=== PATIENT | female | born 1950 | race Caucasian/White ===

== ENCOUNTER 2016-08-13 14:19 | Outpatient (CLI) | payer MEDICARE, OTHER | END 2016-08-13 14:20 | disposition home or self-care (01) | DX: Z53.9 Procedure and treatment not carried out, unspecified reason (principal) ==

== ENCOUNTER 2016-08-13 14:29 | Outpatient (CLI) | payer MEDICARE, OTHER | END 2016-08-13 14:30 | disposition home or self-care (01) | DX: Z13.820 Encounter for screening for osteoporosis (principal); Z78.0 Asymptomatic menopausal state ==

== ENCOUNTER 2016-09-19 12:39 | Outpatient (CLI) | payer MEDICARE, OTHER | END 2016-09-19 12:40 | disposition home or self-care (01) | DX: N63 Unspecified lump in breast (principal); N60.81 Other benign mammary dysplasias of right breast | CPT/HCPCS: 76642; G0204 ==

== ENCOUNTER 2017-10-28 09:03 | Outpatient (CLI) | payer MEDICARE, OTHER ==
--- NOTE | 2017-10-29 15:27 | Mammography Report ---
DIGITAL SCREENING MAMMOGRAM: 10/28/2017 CLINICAL INDICATION: A 67-year-old, for screening. COMPARISON: 09/2016, 08/2015, 07/2014, 06/2013, 05/2011, 05/2010. TECHNIQUE: Routine CC and MLO projections were obtained of the breasts. FINDINGS: Scattered fibroglandular tissue is present within the breasts. There are no dominant masses, suspicious microcalcifications, or secondary signs of malignancy. In comparison to the previous studies, there are no significant changes. ASSESSMENT: NO MAMMOGRAPHIC EVIDENCE OF MALIGNANCY. NO SIGNIFICANT INTERVAL CHANGES. RECOMMENDATION: Screening mammography is recommended annually. BIRADS category 1 - negative. STANDARD QUALIFYING STATEMENTS: 1. This examination was reviewed with the aid of Computed-Aided Detection (CAD). 2. A negative or benign imaging report should not delay biopsy if clinically suspicious findings are present. Consider surgical consultation if warranted. More than 5% of cancers are not identified by imaging. 3. Dense breasts may obscure an underlying neoplasm. TD: 10/29/2017 15:26
== END 2017-10-28 09:04 | disposition home or self-care (01) ==
LOC: DI 09:03
PROVIDERS: ATTEND Internal Medicine
DX: Z12.31 Encounter for screening mammogram for malignant neoplasm of breast (principal)
CPT/HCPCS: 77067

== ENCOUNTER 2018-03-26 07:25 | Day surgery (SDC) | payer MEDICARE, OTHER ==
[~2018-03-26 07:25] MED LIST: BRIMONIDINE 0.2% OPHTH DROPS 5 ML ONE; BSS/LIDOCAINE/EPINEPHRINE 1 ML SYRINGE ONE; EPINEPHrine 1 MG/ML AMP ONE; TIMOLOL 0.5% OPHTH DROPS ONE; TRIAMCIN/MOXIFLOX OPHTHALMIC 0.6 ML VIAL IO ONE; VANCOMYCIN OPHTHALMI 8MG/0.8ML 8 MG/0.8 ML SYRINGE IO ONE
[2018-03-26] MEDS ORDERED: LACTATED RINGERS 500 ML IV ONE (07:41)
--- NOTE | 2018-03-26 07:46 | ANESTHESIA ---
Pre-Anesthesia VS, & Labs - Diagnosis R Nuclear Sclerotic Cataract - Procedure R laser assisted cataract extraction with IOL implant Vital Signs: Temp Pulse Resp BP Pulse Ox 2.4 C L 17 149/69 H 97 03/26/18 07:42 03/26/18 07:42 03/26/18 07:42 03/26/18 07:42 - NPO >8 hours - Is Patient ?: No Home Medications and Allergies Home Medications: Ambulatory Orders Medication Instructions Recorded Confirmed Estradiol 0.5 mg PO BID 03/25/18 03/25/18 Multivit-Min/FA/Lycopen/Lutein 1 tab PO DAILY 03/25/18 03/25/18 [Centrum Silver Men Tablet] Vitamin E (Dl,Tocopheryl Acet) 200 unit PO DAILY 03/25/18 03/25/18 [Vitamin E] Allergies/Adverse Reactions: Allergies Allergy/AdvReac Type Severity Reaction Status Date / Time Latex, Natural Rubber Allergy Rash Verified 03/25/18 09:28 Anes History & Medical History - Medical History Cardiovascular: reports: None Pulmonary: reports: None Gastrointestinal: reports: None Neuro: reports: Motion sickness (vertigo) Musculoskeletal: reports: Osteoarthritis Endocrine/Autoimmune: reports: None Skin: reports: None - Surgical History Eyes Ears Nose Throat (EENT): Tonsil/Adenoidectomy Gynecologic: Hysterectomy Orthopedic: Knee replacement Exam General: Alert, Oriented x3, Cooperative, No acute distress Dental: WNL Neck Mobility: Normal Mallampati classification: II Thyromental Distance: 4-6 cm Respiratory: Lungs clear, Normal breath sounds, No respiratory distress Cardiovascular: Regular rate Mental/Cognitive Status: Alert/Oriented X3, Normal for patient Cognitive Status: Within normal limits Plan Anesthesia Type: MAC Consent for Procedure(s) Verified and Reviewed: Yes Code Status: Attempt Resuscitation ASA classification: 2-Mild systemic disease Is this case an emergency?: No
[2018-03-26] MEDS ORDERED: CYCLOPENTOLATE 1% OPHTH DROPS 2 ML ONE (07:48)
[2018-03-26] MEDS ORDERED: PROPARACAINE 0.5% OPHTH DROPS 15 ML ONE (07:48)
[2018-03-26] MEDS ORDERED: KETOROLAC 0.45% OPHTH DROPS ONE (07:48)
[2018-03-26] MEDS ORDERED: PHENYLEPHRINE 2.5% OPHTH 2 ML DROPS ONE (07:48)
[2018-03-26] MEDS ORDERED: KETOROLAC 0.45% OPHTH DROPS RIGHTEYE ONE (07:53)
[2018-03-26] MEDS ORDERED: CYCLOPENTOLATE 1% OPHTH DROPS 2 ML RIGHTEYE ONE (07:53)
[2018-03-26] MEDS ORDERED: PHENYLEPHRINE 2.5% OPHTH 2 ML DROPS RIGHTEYE ONE (07:53)
[2018-03-26] MEDS ORDERED: PROPARACAINE 0.5% OPHTH DROPS 15 ML RIGHTEYE ONE ×2 (07:53→08:57)
[2018-03-26] MEDS ORDERED: MIDAZOLAM 2 MG/2 ML VIAL IVP ONE (08:55)
[2018-03-26] MEDS ORDERED: CHONDR SULF/HYALURONATE SYRINGE IO ONE (08:56)
[2018-03-26] MEDS ORDERED: BRIMONIDINE 0.2% OPHTH DROPS 5 ML OPTH ONE (08:56)
[2018-03-26] MEDS ORDERED: TIMOLOL 0.5% OPHTH DROPS OPTH ONE (08:56)
[2018-03-26] MEDS ORDERED: EPINEPHrine 1 MG/ML AMP IVP ONE (08:56)
[2018-03-26] MEDS ORDERED: BSS/LIDOCAINE/EPINEPHRINE 1 ML SYRINGE IO ONE ×2 (08:57)
[2018-03-26] MEDS ORDERED: TRIAMCIN/MOXIFLOX/VANCO 1 ML VIAL IO ONE ×2 (08:57)
[2018-03-26 09:26] VITALS: BP 114/70
--- NOTE | 2018-03-26 17:17 | OPERATIVE REPORT ---
DATE OF SERVICE: 03/26/2018 Physician: Jelani Guaman MD PREOPERATIVE DIAGNOSIS: Visually significant cataract, right eye. This was her first cataract surge ry. POSTOPERATIVE DIAGNOSIS: Visually significant cataract, right eye. This was her first cataract surg misty. NAME OF PROCEDURE: Phacoemulsification with posterior chamber intraocular lens implant, right eye, w ith laser assist. SURGEON: Jelani Guaman MD ANESTHESIA: Monitored anesthesia care. COMPLICATIONS: None. OPERATIVE INDICATIONS: This is a 67-year-old woman with progressive vision loss in the right eye due to 2+ nuclear sclerotic cataract. Best corrected visual acuity was 20/20 with glare to 20/60 in the right eye. Indications for surgery are overall decrease in vision, difficulty reading, difficulty s eeing words, closed caption or game scores on TV, and difficulty driving in low light or at night, di fficulty driving at night because of headlights from other vehicles, and difficulty with glare or ronda ght lights in any situation. She was consented at length concerning risks and benefits of cataract s urgery, after which she expressed a desire to proceed with surgery. OPERATIVE PROCEDURE: The patient was taken into OR #3 and placed under monitored anesthesia care. A surgical timeout was conducted confirming correct patient, correct procedure, and correct surgical s ite. She was placed under the LenSx laser and her eye docked to the laser interface. The laser perf ormed the capsulotomy, lens softening, phaco wounds and arcuate keratotomy incisions. She was then m kita to the operating microscope, given topical anesthesia, and prepped and draped in the usual steri le fashion. The eye was entered at the 12 and 9 o'clock positions. Intracameral Shugarcaine was inj ected into the anterior chamber, followed by Viscoat. A capsulorrhexis flap created by the LenSx las er was removed from the anterior chamber. The nucleus was hydrodissected and phacoemulsified. The c ortex was evacuated using automated infusion and aspiration. Provisc was injected in the capsular ba g and a 23.0 diopter multifocal toric intraocular lens was inserted into the bag and rotated to the t oric position of 097. Approximately 0.7 mL of a mixture of triamcinolone, moxifloxacin, and vancomyc in was injected subconjunctivally in the superior quadrant for inflammation and infection prophylaxis . I and A was used to evacuate the viscoelastic material, ensuring that the lens stayed in the posit ion of 097. The eye was inflated to physiologic pressure using balanced salt solution and found to b e watertight. The lens was once more verified to be in the proper alignment of 097. The patient was taken from the operating room in good condition and given postop instructions. TD: 03/26/2018 09:38
== END 2018-03-26 07:26 | disposition home or self-care (01) ==
LOC: SDS 07:25
PROVIDERS: ATTEND Ophthalmology
PROC: 08RJ3JZ Replacement of Right Lens with Synthetic Substitute, Percutaneous Approach (ICD-10-PCS; principal; 2018-03-26 08:30)
DX: H25.11 Age-related nuclear cataract, right eye (principal)
CPT/HCPCS: 66984; A9270; J3490; V2632; V2788

== ENCOUNTER 2018-05-21 08:52 | Day surgery (SDC) | payer MEDICARE, OTHER ==
[~2018-05-21 08:52] MED LIST changes: +CYCLOPENTOLATE 1% OPHTH DROPS 2 ML ONE; +KETOROLAC 0.45% OPHTH DROPS ONE; +PHENYLEPHRINE 2.5% OPHTH 2 ML DROPS ONE; +PROPARACAINE 0.5% OPHTH DROPS 15 ML ONE
[2018-05-21] MEDS ORDERED: LACTATED RINGERS 500 ML IV ONE (09:13)
--- NOTE | 2018-05-21 09:34 | ANESTHESIA ---
Pre-Anesthesia VS, & Labs - Diagnosis Left nuclear sclerotic cataract - Procedure Laser assisted phaco with IOL implant Vital Signs: Temp Pulse Resp BP Pulse Ox 36.2 C L 71 16 110/51 L 99 05/21/18 09:14 05/21/18 09:14 05/21/18 09:14 05/21/18 09:14 05/21/18 09:14 Height 5 ft 5 in Weight (kg) 99.6 kg - NPO >8 hours Last Fluid Intake: water @ 0630 - Is Patient ?: Not Applicable Home Medications and Allergies Estradiol 0.5 mg PO BID 03/25/18 Multivit-Min/FA/Lycopen/Lutein [Centrum Silver Men Tablet] 1 tab PO DAILY 03/25/18 Vitamin E (Dl,Tocopheryl Acet) [Vitamin E] 1 unit PO DAILY 03/25/18 Allergies/Adverse Reactions: Allergies Allergy/AdvReac Type Severity Reaction Status Date / Time Latex, Natural Rubber Allergy Rash Verified 03/25/18 09:28 Anes History & Medical History - Anesthetic History Anesthesia Complications: reports: No previous complications Family history of Anesthesia Complications: Denies Family history of Malignant Hyperthermia: Denies - Medical History Cardiovascular: reports: None Pulmonary: reports: None Gastrointestinal: reports: None Urinary: reports: None Neuro: reports: Motion sickness (vertigo) Musculoskeletal: reports: Osteoarthritis Endocrine/Autoimmune: reports: None Blood Disorders: reports: None Skin: reports: None Smoking Status: Never smoker Psychosocial: reports: No issues indicated - Surgical History Eyes Ears Nose Throat (EENT): Cataracts, Tonsil/Adenoidectomy Gynecologic: Hysterectomy Orthopedic: Knee replacement Exam General: Alert Dental: WNL Mouth Opening: Greater than 4 Fingerbreadths Neck Mobility: Normal Mallampati classification: II Thyromental Distance: greater than 6 cm Respiratory: Lungs clear Cardiovascular: Regular rate Neurological: Normal gait Mental/Cognitive Status: Alert/Oriented X3 Cognitive Status: Within normal limits Plan Anesthesia Type: MAC Consent for Procedure(s) Verified and Reviewed: Yes Code Status: Attempt Resuscitation ASA classification: 2-Mild systemic disease Is this case an emergency?: No
[2018-05-21] MEDS ORDERED: PHENYLEPHRINE 2.5% OPHTH 2 ML DROPS LEFTEYE ONE (09:50)
[2018-05-21] MEDS ORDERED: PROPARACAINE 0.5% OPHTH DROPS 15 ML LEFTEYE ONE (09:50)
[2018-05-21] MEDS ORDERED: CYCLOPENTOLATE 1% OPHTH DROPS 2 ML LEFTEYE ONE (09:50)
[2018-05-21] MEDS ORDERED: KETOROLAC 0.45% OPHTH DROPS LEFTEYE ONE (09:50)
[2018-05-21] MEDS ORDERED: MIDAZOLAM 2 MG/2 ML VIAL IVP ONE (11:00)
[2018-05-21] MEDS ORDERED: TIMOLOL 0.5% OPHTH DROPS OPTH ONE (11:08)
[2018-05-21] MEDS ORDERED: BRIMONIDINE 0.2% OPHTH DROPS 5 ML OPTH ONE (11:08)
[2018-05-21] MEDS ORDERED: CHONDR SULF/HYALURONATE SYRINGE IO ONE (11:08)
[2018-05-21] MEDS ORDERED: EPINEPHrine 1 MG/ML AMP IVP ONE (11:08)
[2018-05-21] MEDS ORDERED: TRIAMCIN/MOXIFLOX OPHTHALMIC 0.6 ML VIAL IO ONE ×2 (11:09)
[2018-05-21] MEDS ORDERED: BSS/LIDOCAINE/EPINEPHRINE 1 ML SYRINGE IO ONE (11:09)
[2018-05-21] MEDS ORDERED: VANCOMYCIN OPHTHALMI 8MG/0.8ML 8 MG/0.8 ML SYRINGE IO ONE (11:20)
[2018-05-21 12:08] VITALS: BP 130/59
--- NOTE | 2018-05-21 13:12 | OPERATIVE REPORT ---
DATE OF SERVICE: 05/21/2018 Physician: Jelani Guaman MD PREOPERATIVE DIAGNOSIS: Visually significant cataract, left eye. Cataract surgery was performed on the right eye on 03/26/2018. POSTOPERATIVE DIAGNOSIS: Visually significant cataract, left eye. Cataract surgery was performed on the right eye on 03/26/2018. NAME OF PROCEDURE: Phacoemulsification with posterior chamber intraocular lens implant, left eye, with laser assist. SURGEON: Jelani Guaman MD. ANESTHESIA: Monitored anesthesia care. COMPLICATIONS: None. OPERATIVE INDICATIONS: This is a 67-year-old woman with progressive vision loss in the left eye, due to 2+ nuclear sclerotic cataract. Best corrected visual acuity was 20/20 with glare to 20/50 in the left eye. Indications for surgery are overall decrease in vision, difficulty reading, difficulty seeing street signs, difficulty driving in low light or at night, difficulty driving at night because of headlights from other vehicles, and difficulty with glare or bright lights in any situation. She was consented at length, concerning risks and benefits of cataract surgery, after which she expressed a desire to proceed with surgery. OPERATIVE PROCEDURE: The patient was taken into OR #3 and placed under monitored anesthesia care. A surgical timeout was conducted, confirming the correct patient, correct procedure, and correct surgical site. She was placed on the LenSx laser, and her eye was docked to the laser interface. The laser performed a capsulotomy, lens softening, phaco wounds, and arcuate keratotomy incisions. She was then moved to the operating microscope, given topical anesthesia, and prepped and draped in the usual sterile fashion. The eye was entered at the 6 and 3 o'clock positions. Intracameral Shugarcaine was injected into the anterior chamber, followed by Viscoat. The capsulorrhexis flap, created by the LenSx laser, was removed from the anterior chamber. The nucleus was hydrodissected and phacoemulsified. The cortex was evacuated, using automated infusion and aspiration. Provisc was injected in the capsular bag, and a 23.0-diopter multifocal, toric intraocular lens was inserted in the bag and rotated to axis 086 to counteract corneal astigmatism. Approximately 0.8 mL of a mixture of triamcinolone, moxifloxacin, and vancomycin was injected subconjunctivally in the superior quadrant for infection and inflammation prophylaxis. I and A was used to evacuate the viscoelastic materials. The eye was inflated to physiologic pressure, using balanced salt solution, and found to be watertight. The IOL was again verified that the toric markers were on axis 086. The patient was taken from the operating room in good condition and given postoperative instructions. TD: 05/21/2018 12:03 MELVIN
== END 2018-05-21 08:53 | disposition home or self-care (01) ==
LOC: SDS 08:52
PROVIDERS: ATTEND Ophthalmology
PROC: 08RK3JZ Replacement of Left Lens with Synthetic Substitute, Percutaneous Approach (ICD-10-PCS; principal; 2018-05-21 10:00)
DX: H25.12 Age-related nuclear cataract, left eye (principal)
CPT/HCPCS: 66984; A9270; J3490; V2632

== ENCOUNTER 2018-11-24 14:12 | Outpatient (CLI) | payer MEDICARE, OTHER ==
--- NOTE | 2018-11-24 15:03 | Mammography Report ---
Reason: SCREENING MAMMO Procedure Date: 11/24/2018 Accession Number: [id number] / [id number] Procedure: SONNY - Screening Mammo w/[facility] CPT Code: FULL RESULT: EXAM: Screening Mammo w/[facility] DATE: 11/24/2018 2:49 PM CLINICAL HISTORY: Screening examination. TECHNIQUE: (B) - Bilateral CC and MLO views were obtained. COMPARISON: 09/19/2016, 10/28/2017 PARENCHYMAL PATTERN: (A) - The breasts demonstrate scattered fibroglandular densities bilaterally. FINDINGS: There are no suspicious masses, calcifications, or areas of distortion. IMPRESSION: Negative examination. BI-RADS category 1. RECOMMENDATION: (ANNUAL) - Recommend routine annual screening mammography. BI-RADS CATEGORY: (1) - Negative. STANDARD QUALIFYING STATEMENTS: 1. This examination was not reviewed with the aid of Computer-Aided Detection (CAD). 2. A negative or benign imaging report should not preclude biopsy if clinically suspicious findings are present. 3. Dense breasts may obscure an underlying neoplasm. 4. This examination was reviewed with the aid of 3D breast imaging (tomosynthesis).
== END 2018-11-24 14:13 | disposition home or self-care (01) ==
LOC: DI 14:12
PROVIDERS: ATTEND Internal Medicine
DX: Z12.31 Encounter for screening mammogram for malignant neoplasm of breast (principal)
CPT/HCPCS: 77063; 77067

== ENCOUNTER 2019-09-02 12:53 | Outpatient (CLI) | payer MEDICARE, OTHER ==
--- NOTE | 2019-09-02 15:40 | MRI Report ---
Reason: PAIN IN LT KNEE Procedure Date: 09/02/2019 Accession Number: [id number] / [id number] Procedure: MRI - Knee LT W/O CPT Code: Final Report FULL RESULT: EXAM: LEFT KNEE MRI WITHOUT CONTRAST EXAM DATE: 09/02/2019 02:02 PM. CLINICAL HISTORY: Posterior left knee pain after injury. COMPARISON: None. TECHNIQUE: Multiplanar, multisequence T1-weighted and fluid-sensitive sequences of the knee without contrast. Other: None. FINDINGS: Bones and articular cartilage: Tiny marginal osteophytes at the femoral condyles, tibial plateau, and patella. Grade II-III chondromalacia of the medial femoral condyle and medial tibial plateau. Grade II chondromalacia at the lateral femoral condyle. Subcortical marrow edema at the posterior median aspect of the tibial plateau. Grade III-IV chondromalacia at the patella. No patellar subluxation. Small subcortical cysts at the lateral patellar facet. Medial Meniscus: Grade 1 signal and free edge fraying at the posterior horn. Possible small radial tear at the lateral margin of the posterior horn. Lateral Meniscus: The lateral meniscus is intact. Cruciate Ligaments: The anterior and posterior cruciate ligaments are intact. Collateral Ligaments: The medial collateral and lateral collateral ligamentous structures are intact. Tendons: There is distal semimembranosus tendinosis. The popliteus, quadriceps, and patellar tendon are unremarkable. No tendon tear. Musculature: No edema or fatty atrophy. Other: Very small joint effusion. Small popliteal cyst. Small synovial cyst or ganglion adjacent to the popliteus muscle-tendon unit. No loose bodies. The medial and lateral retinacula are intact. The subcutaneous tissues and fat pads are unremarkable. IMPRESSION: 1. Tricompartmental osteoarthritis. 2. Grade 1 signal and free edge fraying at the posterior horn of the meniscus. Possible small radial tear at the lateral margin of the posterior horn medial meniscus. 3. Distal semimembranosus tendinosis. 4. Very small joint effusion. Small popliteal cyst. Small synovial cyst or ganglion adjacent to the popliteus muscle-tendon unit. RADIA
== END 2019-09-02 12:54 | disposition home or self-care (01) ==
LOC: DI 12:53
PROVIDERS: ATTEND Internal Medicine
DX: M17.12 Unilateral primary osteoarthritis, left knee (principal); M67.962 Unspecified disorder of synovium and tendon, left lower leg; M25.462 Effusion, left knee; M71.22 Synovial cyst of popliteal space [Baker], left knee

== ENCOUNTER 2020-03-28 15:15 | Outpatient (CLI) | payer MEDICARE, OTHER ==
--- NOTE | 2020-03-29 08:18 | Mammography Report ---
BILATERAL DIGITAL SCREENING MAMMOGRAM 3D/2D: 03/28/2020 CLINICAL: Routine screening. Comparison is made to exams dated: 11/24/2018 mammogram, 10/28/2017 mammogram, and 09/19/2016 mammogram - [facility]. The tissue of both breasts is predominantly fatty. No significant masses, calcifications, or other findings are seen in either breast. There has been no significant interval change. IMPRESSION: NEGATIVE There is no mammographic evidence of malignancy. A 1 year screening mammogram is recommended. This exam was interpreted at Station ID: [id number]. NOTE: For mammograms, a report in lay terms will be sent to the patient. Approximately 15% of breast malignancies will not be visualized mammographically. In the management of a palpable breast mass, a negative mammogram must not discourage biopsy of a clinically suspicious lesion. Electronically Signed By: Chad Moody M.D. ar/penrad:03/28/2020 16:55:10 ACR BI-RADS Category 1: Negative 3341F PARENCHYMAL PATTERN: (F) - The breast(s) demonstrate(s) diffuse fatty replacement. BI-RADS CATEGORY: (1) - 1 RECOMMENDATION: (ANNUAL) - Recommend routine annual screening mammography. [id number] 1 year screening LATERALITY: (B)
== END 2020-03-28 15:16 | disposition home or self-care (01) ==
LOC: DI 15:15
PROVIDERS: ATTEND Internal Medicine
DX: Z12.31 Encounter for screening mammogram for malignant neoplasm of breast (principal)
CPT/HCPCS: 77063; 77067

== ENCOUNTER 2021-08-22 08:00 | Outpatient (CLI) | payer MEDICARE, OTHER ==
[2021-08-22 20:54] LABS: CHLAMYDIA TRACHOMATIS DNA NEGATIVE (NEGATIVE); NEISSERIA GONORRHOEAE DNA NEGATIVE (NEGATIVE); TRICHOMONAS VAGINALIS DNA NEGATIVE (NEGATIVE)
[2021-08-22 21:06] LABS: BACTERIAL VAGINOSIS DNA NEGATIVE (NEGATIVE); CANDIDA GLABRATA DNA NEGATIVE (NEGATIVE); CANDIDA GROUP DNA NEGATIVE (NEGATIVE); CANDIDA KRUSEI DNA NEGATIVE (NEGATIVE); TRICHOMONAS VAGINALIS DNA NEGATIVE (NEGATIVE)
== END 2021-08-22 23:59 ==
LOC: LAB.R 08:00
PROVIDERS: ATTEND Internal Medicine
DX: N89.8 Other specified noninflammatory disorders of vagina (principal)
CPT/HCPCS: 87491; 87591; 87661; 87801

== ENCOUNTER 2021-11-19 08:00 | Outpatient (CLI) | payer MEDICARE, OTHER ==
[2021-11-19 17:45] LABS: BASOPHILS # (AUTO) 0.1 10^3/uL (0.0-0.1); BASOPHILS % (AUTO) 0.6 %; EOSINOPHILS # (AUTO) 0.1 10^3/uL (0.0-0.7); EOSINOPHILS % (AUTO) 1.5 %; HCT - HEMATOCRIT 41.3 % (37.0-47.0); HGB - HEMOGLOBIN 13.6 g/dL (12.0-16.0); LYMPHOCYTES # (AUTO) 2.9 10^3/uL (1.5-3.5); LYMPHOCYTES % (AUTO) 33.6 %; MEAN CORPUSCULAR HEMOGLOBIN 30.2 pg (27.0-31.0); MEAN CORPUSCULAR HGB CONC 32.9 g/dL (32.0-36.0); MEAN CORPUSCULAR VOLUME 91.6 fL (81.0-99.0); MEAN PLATELET VOLUME 10.5 fL (7.9-10.8); MONOCYTES # (AUTO) 0.6 10^3/uL (0.0-1.0); MONOCYTES % (AUTO) 6.5 %; NEUTROPHILS % (AUTO) 57.6 %; PLT - PLATELET COUNT 263 10^3/uL (130-450); RED BLOOD COUNT 4.51 10^6/uL (4.20-5.40); RED CELL DISTRIBUTION WIDTH 12.9 % (12.0-15.0); WHITE BLOOD COUNT 8.7 x10^3/uL (4.8-10.8)
[2021-11-19 18:17] LABS: ALBUMIN 4.1 g/dL (3.2-5.5); ALBUMIN/GLOBULIN RATIO 1.1 (1.0-2.2); ALKALINE PHOSPHATASE 61 IU/L (42-121); ALT ALANINE AMINOTRANSFERASE 18 IU/L (10-60); AST ASPARTATE AMINOTRANSFERASE 18 IU/L (10-42); BILIRUBIN,TOTAL 0.8 mg/dL (0.2-1.0); BUN - BLOOD UREA NITROGEN 15 mg/dL (6-20); CALCIUM 9.6 mg/dL (8.5-10.3); CARBON DIOXIDE - CO2 26 mmol/L (21-32); CHLORIDE 99 mmol/L (101-111); CHOL/HDL RATIO 2.3 (<4.4); CHOLESTEROL 201 mg/dL; CREATININE 0.8 mg/dL (0.4-1.0); GFR - MDRD 71 (>89); GLUCOSE 95 mg/dL (70-100); HDL CHOLESTEROL 86 mg/dL; LDL CHOLESTEROL,CALCULATED 101 mg/dL; LDL/HDL RATIO 1.2 (<4.4); POTASSIUM 4.1 mmol/L (3.5-5.0); SODIUM 136 mmol/L (135-145); TOTAL PROTEIN 7.9 g/dL (6.7-8.2); TRIGLYCERIDES 71 mg/dL; VLDL CHOLESTEROL 14 mg/dL
[2021-11-19 19:04] LABS: ESTIMATED AVERAGE GLUCOSE 123 mg/dL (70-100); HEMOGLOBIN A1c% 5.9 % (4.27-6.07)
== END 2021-11-19 23:59 | disposition home or self-care (01) ==
LOC: LAB.R 08:00
PROVIDERS: ATTEND Internal Medicine
DX: Z00.00 Encounter for general adult medical examination without abnormal findings (principal); D64.9 Anemia, unspecified; K76.0 Fatty (change of) liver, not elsewhere classified; K21.9 Gastro-esophageal reflux disease without esophagitis; Z86.718 Personal history of other venous thrombosis and embolism; N95.1 Menopausal and female climacteric states; R73.9 Hyperglycemia, unspecified; R61 Generalized hyperhidrosis; F51.5 Nightmare disorder; J30.2 Other seasonal allergic rhinitis
CPT/HCPCS: 80053; 80061; 83036; 83721; 84443; 85025

== ENCOUNTER 2022-01-22 12:58 | Outpatient (CLI) | payer MEDICARE, OTHER ==
--- NOTE | 2022-01-23 12:16 | Mammography Report ---
BILATERAL DIGITAL SCREENING MAMMOGRAM 3D/2D: 01/22/2022 CLINICAL: Routine screening. Comparison is made to exams dated: 03/28/2020 mammogram, 11/24/2018 mammogram, 10/28/2017 mammogram, 09/19/2016 mammogram, and 08/30/2015 mammogram - [facility]. There are scattered fibrog landular elements in both breasts. No significant masses, calcifications, or other findings are seen in either breast. There has been no significant interval change. IMPRESSION: NEGATIVE There is no mammographic evidence of malignancy. A 1 year screening mammogram is recommended. This exam was interpreted at Station ID: [id number]. NOTE: For mammograms, a report in lay terms will be sent to the patient. Approximately 15% of breast malignancies will not be visualized mammographically. In the management of a palpable breast mass, a negative mammogram must not discourage biopsy of a clinically suspicious lesion. Electronically Signed By: Lupillo Toro M.D. slc/penrad:01/22/2022 17:40:25 ACR BI-RADS Category 1: Negative 3341F PARENCHYMAL PATTERN: (A) - The breast(s) demonstrate(s) scattered fibroglandular densities. BI-RADS CATEGORY: (1) - 1 RECOMMENDATION: (ANNUAL) - Recommend routine annual screening mammography. [id number] 1 year screening LATERALITY: (B)
== END 2022-01-22 12:59 | disposition home or self-care (01) ==
LOC: DI.N 12:58
PROVIDERS: ATTEND Internal Medicine
DX: Z12.31 Encounter for screening mammogram for malignant neoplasm of breast (principal)

== ENCOUNTER 2022-03-01 12:51 | Day surgery (SDC) | payer MEDICARE, OTHER ==
[2022-03-01] MEDS ORDERED: LACTATED RINGERS 1,000 ML IV ONE ×2 (13:20→15:01)
[2022-03-01] MEDS ORDERED: LIDOCAINE-MPF 2% 5 ML VIAL ONE (13:45)
[2022-03-01] MEDS ORDERED: PROPOFOL 200 MG/20 ML VIAL IVP ONE (13:45)
--- NOTE | 2022-03-01 13:48 | ANESTHESIA ---
Pre-Anesthesia VS, & Labs - Diagnosis screening - Procedure colonoscopy Vital Signs: Temp Pulse Resp BP Pulse Ox 36.1 C L 78 16 150/86 H 100 03/01/22 13:10 03/01/22 13:10 03/01/22 13:10 03/01/22 13:10 03/01/22 13:10 Height: 5 ft 4.5 in Weight (kg): 92.9 kg Body Mass Index: 34.6 BMI Classification: Obese - NPO >8 hours - Is Patient ?: No - Lab Results Lab results reviewed: Yes Home Medications and Allergies Multivit-Min/FA/Lycopen/Lutein [Centrum Silver Men Tablet] 1 tab PO DAILY 03/25/18 Vitamin E (Dl,Tocopheryl Acet) [Vitamin E] 1 unit PO DAILY 03/25/18 estradioL [Estradiol] 0.5 mg PO BID 03/25/18 Allergies/Adverse Reactions: Allergies Allergy/AdvReac Type Severity Reaction Status Date / Time Latex, Natural Rubber Allergy Rash Verified 03/01/22 13:13 Anes History & Medical History - Anesthetic History Anesthesia Complications: reports: No previous complications Family history of Anesthesia Complications: Denies Family history of Malignant Hyperthermia: Denies - Medical History Cardiovascular: reports: Deep vein thrombosis (LLE, in 2018, resolved) Pulmonary: reports: None Gastrointestinal: reports: None Urinary: reports: None Neuro: reports: Motion sickness (vertigo) Musculoskeletal: reports: Osteoarthritis Endocrine/Autoimmune: reports: None Blood Disorders: reports: None Skin: reports: None Smoking Status: Never smoker History of Cancer?: No - Surgical History General: reports: Colonoscopy Eyes Ears Nose Throat (EENT): reports: Cataracts, Tonsil/Adenoidectomy Gynecologic: reports: Hysterectomy Orthopedic: reports: Knee replacement Exam General: Alert, Oriented x3 Dental: WNL Mouth Openin Fingerbreadth Mallampati classification: II Thyromental Distance: 4-6 cm Respiratory: Lungs clear Cardiovascular: Regular rate, Normal S1, Normal S2, No murmurs Mental/Cognitive Status: Alert/Oriented X3, Normal for patient Cognitive Status: Within normal limits Plan Anesthesia Type: General Consent for Procedure(s) Verified and Reviewed: Yes Code Status: Attempt Resuscitation ASA classification: 2-Mild systemic disease Is this case an emergency?: No
[2022-03-01 15:22] VITALS: BP 111/47
--- NOTE | 2022-03-04 13:36 | ANESTHESIA POST OP EVALUATION ---
Anesthesia Post Eval - Post Anesthesia Eval Vitals: Last Vital Signs Temp 36.5 C 03/01/22 15:01 Pulse 72 03/01/22 15:22 Resp 12 03/01/22 15:22 BP 111/47 L 03/01/22 15:22 Pulse Ox 99 03/01/22 15:22 CV Function Including HR & BP: Stable Pain Control: Satisfactory Nausea & Vomiting: Negative Mental Status: Baseline Respiratory Status: Airway Patent Hydration Status: Satisfactory Anesthesia Complications: None
== END 2022-03-01 12:52 | disposition home or self-care (01) ==
LOC: SDS 12:51
PROVIDERS: ATTEND Surgery
PROC: 0DBP8ZX Excision of Rectum, Via Natural or Artificial Opening Endoscopic, Diagnostic (ICD-10-PCS; principal; 2022-03-01 14:00)
DX: Z12.11 Encounter for screening for malignant neoplasm of colon (principal); K62.1 Rectal polyp; K57.30 Diverticulosis of large intestine without perforation or abscess without bleeding; E66.9 Obesity, unspecified; Z68.35 Body mass index [BMI] 35.0-35.9, adult
CPT/HCPCS: 45380; J7120

== ENCOUNTER 2023-01-27 13:30 | Outpatient (CLI) | payer MEDICARE, OTHER ==
--- NOTE | 2023-01-28 10:37 | Mammography Report ---
BILATERAL DIGITAL SCREENING MAMMOGRAM 3D/2D: 01/27/2023 CLINICAL: Routine screening. Comparison is made to exams dated: 01/22/2022 mammogram, 03/28/2020 mammogram, 10/28/2017 mammogram, mammogram, 09/19/2016 mammogram, and 08/30/2015 mammogram - [facility]. There are scattered areas of fibroglandular density in both breasts (category b / 25%-50% glandular t issue). There is a new irregular asymmetry in the left breast middle depth superior region seen on the mediol ateral oblique view only. No other significant masses, calcifications, or other findings are seen in either breast. IMPRESSION: INCOMPLETE: NEEDS ADDITIONAL IMAGING EVALUATION The new irregular asymmetry in the left breast is indeterminate. Additional views with possible ultr asound are recommended. Based on the Tyrer Cuzick model (a risk assessment model) the patients lifetime risk is 3.0% and her 10 year risk is 2.5%. According to the ACR, ACS, and NCCN guidelines, an annual breast MRI exam brain g with mammogram is recommended if the patients lifetime risk is 20% or greater. This exam was interpreted at Station ID: [id number]. NOTE: For mammograms, a report in lay terms will be sent to the patient. Approximately 15% of breast malignancies will not be visualized mammographically. In the management of a palpable breast mass, a negative mammogram must not discourage biopsy of a clinically suspicious lesion. Electronically Signed By: Matilde barnes/penrad:01/27/2023 19:34:47 ACR BI-RADS Category 0: Incomplete 3340F PARENCHYMAL PATTERN: (A) - The breast(s) demonstrate(s) scattered fibroglandular densities. BI-RADS CATEGORY: (0) - 0 Mammo and [place] [id number] Immediate follow-up LATERALITY: (B)
== END 2023-01-27 13:31 | disposition home or self-care (01) ==
LOC: DI 13:30
PROVIDERS: ATTEND Internal Medicine
DX: Z12.31 Encounter for screening mammogram for malignant neoplasm of breast (principal); R92.8 Other abnormal and inconclusive findings on diagnostic imaging of breast

== ENCOUNTER 2023-03-14 10:16 | Outpatient (CLI) | payer MEDICARE, OTHER ==
--- NOTE | 2023-03-17 11:26 | Mammography Report ---
UNILATERAL LEFT DIGITAL DIAGNOSTIC MAMMOGRAM 3D/2D: 03/14/2023 CLINICAL: Patient returns today to evaluate an asymmetry in the left breast. Comparison is made to exams dated: 01/27/2023 mammogram, 01/22/2022 mammogram, 03/28/2020 mammogram, mammogram, 10/28/2017 mammogram, and 09/19/2016 mammogram - [facility]. There are scattered areas of fibroglandular density in the left breast (category b / 25%-50% glandula r tissue). The irregular asymmetry in the left breast middle depth superior region seen on the mediolateral obli que view only is not seen in additional views. No other significant masses or calcifications are seen in the breast. IMPRESSION: BENIGN There is no mammographic evidence of malignancy. Return to annual mammogram screening schedule is rec ommended. Based on the Tyrer Cuzick model (a risk assessment model) the patients lifetime risk is 3.0% and her 10 year risk is 2.5%. According to the ACR, ACS, and NCCN guidelines, an annual breast MRI exam brain g with mammogram is recommended if the patients lifetime risk is 20% or greater. This exam was interpreted at Station ID: [id number]. NOTE: For mammograms, a report in lay terms will be sent to the patient. Approximately 15% of breast malignancies will not be visualized mammographically. In the management of a palpable breast mass, a negative mammogram must not discourage biopsy of a clinically suspicious lesion. Electronically Signed By: Marva verdugo/:03/14/2023 11:16:11 ACR BI-RADS Category 2: Benign Finding(s) 3342F PARENCHYMAL PATTERN: (A) - The breast(s) demonstrate(s) scattered fibroglandular densities. BI-RADS CATEGORY: (2) - 2 Mammogram [id number] return to screening LATERALITY: (B)
== END 2023-03-14 10:17 | disposition home or self-care (01) ==
LOC: DI 10:16
PROVIDERS: ATTEND Internal Medicine
DX: R92.8 Other abnormal and inconclusive findings on diagnostic imaging of breast (principal)

== ENCOUNTER 2023-04-18 10:14 | Outpatient (CLI) | payer MEDICARE, OTHER ==
--- NOTE | 2023-04-18 12:21 | DEXA Report ---
PROCEDURE: Dexa Spine and/or Hip INDICATIONS: OSTEOPOROSIS TECHNIQUE: Dual energy x-ray absorptiometry (DEXA) was performed in the regions detailed below. COMPARISON: 08/13/2016 FINDINGS: Lumbar Spine: Bone Mineral Density 1.299 g/cm/cm,T score 1.0. Previously -0.3 Left Femoral Neck: Bone Mineral Density 0.984 g/cm/cm, T score -0.6. Previously -0.6 Left Hip: Bone Mineral Density 1.033 g/cm/cm,T score 0.2. Previously 0.3 (T score greater or equal to -1.0: NORMAL) (T score from -1.1 to -2.4: OSTEOPENIA) (T score less than or equal to -2.5 to: OSTEOPOROSIS) IMPRESSION: Normal bone mineral density Patients with diagnosis of osteoporosis or osteopenia should have regular bone mineral density assess ment. For those eligible for Medicare, routine testing is allowed once every 2 years. Testing frequ ency can be increased for patients who have rapidly progressing disease or for those who are receivin g medical therapy to restore bone mass. Reviewed by: Madhu Banegas MD on 04/18/2023 11:20 AM GINGER Approved by: Madhu Banegas MD on 04/18/2023 11:20 AM GINGER Station ID: [id number]
== END 2023-04-18 10:15 | disposition home or self-care (01) ==
LOC: DI 10:14
PROVIDERS: ATTEND Internal Medicine Rheumatology
DX: M81.0 Age-related osteoporosis without current pathological fracture (principal)

== ENCOUNTER 2023-08-13 14:55 | Outpatient (CLI) | payer MEDICARE, OTHER | END 2023-08-13 14:56 | disposition home or self-care (01) | LOC: LAB 14:55 | PROVIDERS: ATTEND Surgery | DX: M35.3 Polymyalgia rheumatica (principal) | CPT/HCPCS: 36415; 85651; 86140 ==

== ENCOUNTER 2023-10-23 14:00 | Outpatient (CLI) | payer MEDICARE, OTHER | END 2023-10-23 14:01 | disposition home or self-care (01) | LOC: LAB 14:00 | PROVIDERS: ATTEND Internal Medicine Rheumatology | DX: M35.3 Polymyalgia rheumatica (principal) | CPT/HCPCS: 36415; 85651; 86140 ==

== ENCOUNTER 2024-03-29 08:45 | Outpatient (CLI) | payer MEDICARE, OTHER ==
[2024-03-29 09:00] LABS: BASOPHILS % (AUTO) 0.5 %; EOSINOPHILS # (AUTO) 0.1 10^3/uL (0.0-0.7); EOSINOPHILS % (AUTO) 1.9 %; HCT - HEMATOCRIT 38.9 % (37.0-47.0); HGB - HEMOGLOBIN 12.8 g/dL (12.0-16.0); LYMPHOCYTES # (AUTO) 1.7 10^3/uL (1.5-3.5); LYMPHOCYTES % (AUTO) 26.4 %; MEAN CORPUSCULAR HEMOGLOBIN 29.4 pg (27.0-31.0); MEAN CORPUSCULAR HGB CONC 32.9 g/dL (32.0-36.0); MEAN CORPUSCULAR VOLUME 89.2 fL (81.0-99.0); MEAN PLATELET VOLUME 9.3 fL (7.9-10.8); MONOCYTES # (AUTO) 0.5 10^3/uL (0.0-1.0); MONOCYTES % (AUTO) 8.2 %; NEUTROPHILS % (AUTO) 62.8 %; PLT - PLATELET COUNT 245 10^3/uL (130-450); RED BLOOD COUNT 4.36 10^6/uL (4.20-5.40); RED CELL DISTRIBUTION WIDTH 12.7 % (12.0-15.0); WHITE BLOOD COUNT 6.3 x10^3/uL (4.8-10.8)
[2024-03-29 09:07] LABS: BILIRUBIN,URINE NEGATIVE (NEGATIVE); GLUCOSE, URINE (UA) NEGATIVE (NEGATIVE); KETONES,URINE (UA) NEGATIVE (NEGATIVE); LEUKOCYTE ESTERASE, URINE NEGATIVE (NEGATIVE); NITRITE,URINE NEGATIVE (NEGATIVE); OCCULT BLOOD,URINE NEGATIVE (NEGATIVE); PH,URINE 5.5 PH (5.0-7.5); PROTEIN,URINE NEGATIVE (NEGATIVE); UROBILINOGEN,URINE 0.2 (NORMAL) E.U./dL (NORMAL)
[2024-03-29 09:14] LABS: CLARITY,URINE CLEAR (CLEAR)
[2024-03-29 09:25] LABS: ALBUMIN 3.8 g/dL (3.2-5.5); ALBUMIN/GLOBULIN RATIO 1.2 (1.0-2.2); ALKALINE PHOSPHATASE 68 IU/L (42-121); ALT ALANINE AMINOTRANSFERASE 15 IU/L (10-60); AST ASPARTATE AMINOTRANSFERASE 18 IU/L (10-42); BILIRUBIN,TOTAL 0.6 mg/dL (0.2-1.0); BUN - BLOOD UREA NITROGEN 15 mg/dL (6-20); CARBON DIOXIDE - CO2 26 mmol/L (21-32); CHLORIDE 105 mmol/L (101-111); CHOL/HDL RATIO 2.1 (<4.4); CHOLESTEROL 172 mg/dL; CREATININE 0.7 mg/dL (0.6-1.3); GFR - MDRD 82 (>89); GLUCOSE 114 mg/dL (74-104); HDL CHOLESTEROL 83 mg/dL; LDL CHOLESTEROL,CALCULATED 76 mg/dL; LDL/HDL RATIO 0.9 (<4.4); POTASSIUM 4.1 mmol/L (3.5-4.5); SODIUM 137 mmol/L (135-145); TOTAL PROTEIN 6.9 g/dL (6.4-8.9); TRIGLYCERIDES 66 mg/dL; VLDL CHOLESTEROL 13 mg/dL
[2024-03-29 09:32] LABS: THYROID STIMULATING HORMONE 1.62 uIU/mL (0.34-5.60)
[2024-03-29 10:16] LABS: ESTIMATED AVERAGE GLUCOSE 111 mg/dL (70-100); HEMOGLOBIN A1c% 5.5 % (4.27-6.07)
== END 2024-03-29 08:46 | disposition home or self-care (01) ==
LOC: LAB 08:45
PROVIDERS: ATTEND Internal Medicine
DX: Z00.00 Encounter for general adult medical examination without abnormal findings (principal); D64.9 Anemia, unspecified; R73.01 Impaired fasting glucose; R35.0 Frequency of micturition; Z86.718 Personal history of other venous thrombosis and embolism; M54.50 Low back pain, unspecified; M54.30 Sciatica, unspecified side; M25.519 Pain in unspecified shoulder; N95.1 Menopausal and female climacteric states
CPT/HCPCS: 36415; 80053; 80061; 81001; 81003; 83036; 83721; 84443; 85025; 87086